=== PATIENT | female | born 1935 | race Caucasian/White ===

== ENCOUNTER 2020-06-22 14:17 | Emergency (ER) | payer MEDICARE ==
[~2020-06-22] VITALS: Ht 162.6 cm; Wt 45.4 kg
[2020-06-22 14:33] VITALS: BP 157/90
--- NOTE | 2020-06-22 14:35 | NUR ---
PT SENT TO [facility] TENT TO WAIT FOR LABS AND X-RAY.
--- NOTE | 2020-06-22 14:35 | NUR ---
PT SEEN AND EVALUATED BY DR. TAI IN BACK OF AMBULANCE.
[2020-06-22 15:07] LABS: BASOPHILS # (AUTO) 0.1 K/uL (0.00-0.22); BASOPHILS % (AUTO) 0.9 % (0.0-2.0); EOSINOPHILS # (AUTO) 0.1 K/uL (0-0.4); HEMATOCRIT 37.3 % (36-48); HEMOGLOBIN 12.5 g/dL (12.0-16.0); LYMPHOCYTES # (AUTO) 1.4 K/uL (2.5-16.5); LYMPHOCYTES % (AUTO) 22.5 % (20.5-51.1); MEAN CORPUSCULAR HEMOGLOBIN 30 pg (27-31); MEAN CORPUSCULAR HGB CONC 34 g/dL (33-37); MEAN CORPUSCULAR VOLUME 89.6 fL (80-94); MONOCYTES # (AUTO) 0.6 K/uL (0.8-1.0); MONOCYTES % (AUTO) 9.3 % (1.7-9.3); NEUTROPHILS # (AUTO) 4.1 K/uL (1.8-7.7); NEUTROPHILS % (AUTO) 65.3 % (42.2-75.2); PLATELET COUNT (AUTO) 307 K/uL (140-450); RED BLOOD CELL COUNT(AUTO) 4.16 MIL/uL (4.20-5.40); RED CELL DISTRIBUTION WIDTH 12.9 % (11.6-13.7); WHITE BLOOD COUNT (AUTO) 6.3 K/uL (4.8-10.8)
--- NOTE | 2020-06-22 15:08 | NUR ---
C/O SOB X1 DAY, COVID + 12 DAYS AGO, C/O FEVER, LOSS OF TASTE HX DM, HTN
[2020-06-22 15:50] LABS: ALBUMIN 3.1 g/dL (3.4-5.0); ANION GAP 13.6 (8-16); ASPARTATE AMINOTRANSFERASE 41 U/L (15-37); CARBON DIOXIDE 26.4 mmol/L (21-32); CHLORIDE 96 mmol/L (98-107); CREATININE 0.8 mg/dL (0.6-1.3); GLUCOSE 176 mg/dL (74-106); PROTHROMBIN TIME 9.2 secs (10.8-13.4); SODIUM SERUM 131 mmol/L (136-145); TOTAL BILIRUBIN 0.4 mg/dL (0.0-1.0); UREA NITROGEN, BLOOD 17 mg/dL (7-18)
[2020-06-22] MEDS ORDERED: [UNRECOGNIZED DRUG - OTHER] IV SCH (15:55)
[2020-06-22] MEDS ORDERED: BAMLANIVIMAB IV SCH (15:55)
[2020-06-22 16:17] LABS: LACTATE DEHYDROGENASE 255 U/L (81-234)
--- NOTE | 2020-06-22 16:20 | NUR ---
WAITING FOR SON TO RETURN TO HAVE CONSENT SIGNED FOR MEDICATION INFUSION.
[2020-06-22 16:26] LABS: C-REACTIVE PROTEIN QUANT 2.8 mg/dL (0.0-0.9)
--- NOTE | 2020-06-22 16:38 | NUR ---
Unable to obtain EKG at this time, and RN made aware.
[2020-06-22 17:09] LABS: D-DIMER 342 ng/ml (0-400)
[2020-06-22 17:45] LABS: FIBRINOGEN 475 mg/dL (200-400)
--- NOTE | 2020-06-22 20:30 | NUR ---
MEDICATED PER ERMDS ORDER, TOLERATED WELL.
[2020-06-22] MEDS: COMMUNICATION ORDER MC ONE (20:34)
--- NOTE | 2020-06-22 20:36 | NUR ---
LAB CALLED WITH [facility]. ERMD MADE AWARE
--- NOTE | 2020-06-22 20:45 | NUR ---
ALL RESULTS BACK AND NOTED BY ERMD AND FOR D/C
[2020-06-22 22:00] VITALS: BP 132/81
--- NOTE | 2020-06-22 22:00 | NUR ---
Patient discharged with v/s stable. Written and verbal after care instructions given and explained. Patient alert, oriented and verbalized understanding of instructions. Wheel Chair Assisted with to car. All questions addressed prior to discharge. ID band removed. Patient advised to follow up with PMD. Rx of VITAMIN D3, C, PROMETHAZINE, ZINC given. Patient educated on indication of medication including possible reaction and side effects. Opportunity to ask questions provided and answered.
[2020-06-23 14:42] LABS: RSV NEGATIVE (NEGATIVE)
== END 2020-06-22 22:00 | disposition home or self-care (01) ==
LOC: MED 14:17 → EDBD 14:17 → MED 22:00
DX: U07.1 COVID-19 (principal); J45.909 Unspecified asthma, uncomplicated; E11.9 Type 2 diabetes mellitus without complications; K21.9 Gastro-esophageal reflux disease without esophagitis; I10 Essential (primary) hypertension
CPT/HCPCS: 36415; 36600; 71045; 80053; 82550; 82728; 82803; 83605; 83615; 83880; 84484; 85025; 85379; 85384; 85610; 85730; 86140; 87040; 87420; 87426; 87804; 99284; J7030; M0239